=== PATIENT | female | born 2000 | race Caucasian/White ===

== ENCOUNTER 2021-05-27 07:51 | Outpatient (RCR) | payer OTHER, SELFPAY ==
--- NOTE | 2021-05-27 10:19 | HP.OTEVAL ---
Patient's Visit Information TEMI RICKETTS is a 21 year old F, referred to Occupational Therapy by Dr. Drake Gonzales MD, with a diagnosis of right RF fx. Date of Evaluation: 05/27/21 Occupational Therapist: Chasidy Macias, CHARISSA/Haydee, CHT - Subjective This 21 year old female was seen for OT eval with dx of closed displaced fracture of distal phalanx of right ring finger- pt states DOI 04/26/21- pt plays softball and ball was case of fx. pt went to ER next day. placed in soft splint for 4 week. Today pt arrives with order for mallet splint fabrication ROM exercises for proximal joints. - Pain right finger 0 Pain Intensity Range: 4 - ROM ROM Comments: pt demo with DIP at 0* (no flexion tested at this time). right MF PIP +10/45*. this was first pt was able to move PIP since she was splinted. - Strength Strength Comments: not tested at this time - Quick DASH-Disab of Arm,Shoulder& Hand Quick DASH Score: 20.4525 - Goals Goal:: pt will demo a increase in right MF PIP flex to 80* or greater by d/c to increase pts ind. with ADls and IADLS Goal:: pt will demo IND doffing/donning of orthosis by end of 1st session. pt will demo understanding to return to clinic for orthosis adj. to increase compliance with orthosis use by end of 1st session. - Rehabilitation General Assessment: pt arrives today 4 weeks from phalanx fx in need of custom mallet finger orthosis- therapist kj. two custom mallet finger orthosis- ed. on use and care- pt to return to clinic if she need new one or adj. made. Therapist also ed. pt on ROM of PIPJ. pt demo understanding and agree to HEP. Rehabilitation Potential: Good - Anticipated Interventions A/AAROM/PROM, Orthoses, Home Program - Visit Plan TEXT: Thank you for the opportunity to evaluate your patient. For Medicare and Medicare HMO plans, please review the plan of care and approve it. It will need to be FAXED BACK to us at [phone] for Medicare purposes. Please let me know if there are questions or concerns regarding this plan of care. Physician Signature: Date:
--- NOTE | 2021-08-10 09:48 | HP.OT.NRP ---
TEMI RICKETTS was seen in my office for initial evaluation on 05/27/21. The following Plan of Care was established for this patient: Anticipated Interventions: A/AAROM/PROM, Orthoses, Home Program This patient was last seen in our office 05/20/21. Pertinent comments regarding their Occupational therapy will appear below: pt seen for eval only- due to time lapse in services pt d/c At this point I will be discontinuing this patient from occupational therapy. I would be happy to see this patient again in the future if found appropriate by the physician. Thank you! Chasidy Macias, OTR/L, CHT
== END 2021-05-27 19:00 | disposition home or self-care (01) ==
LOC: OT 07:51
PROVIDERS: PCP Orthopaedic Surgery; Referring Provider Orthopaedic Surgery; Visit Provider Orthopaedic Surgery
DX: S62.634D Displaced fracture of distal phalanx of right ring finger, subsequent encounter for fracture with routine healing (principal); X58.XXXD Exposure to other specified factors, subsequent encounter
CPT/HCPCS: 97166